=== PATIENT | female | born 1985 | race Caucasian/White ===

== ENCOUNTER 2017-12-30 10:03 | Inpatient (IN) | payer OTHER ==
[2017-12-30] MEDS ORDERED: BRETHINE SUB-Q PRN (10:24)
[2017-12-30] MEDS ORDERED: SUBLIMAZE IV PRN (10:24)
[2017-12-30] MEDS ORDERED: PITOCin/NS 20 UNIT/1000ML DRIP 20 UNITS/1,000 ML BAG IV SCH (11:00)
[2017-12-30] MEDS ORDERED: POLYCILLIN/NS 2 GM/100 ML 2 GM/100 ML BAG IV ONE (11:00)
[2017-12-30] MEDS ORDERED: LACTATED RINGERS 1,000 ML IV SCH ×2 (11:00)
[2017-12-30] MEDS ORDERED: XYLOCAINE 2% INFILTRATI ONE (11:00)
--- NOTE | 2017-12-30 11:02 | History and Physical Report ---
History of Present Illness Date of examination: 12/30/17 Date of admission: 12/30/17 10:47 Chief complaint: Labor History of present illness: 32 year old presents to L&D in active labor. Patient states her contractions began around 1:30 AM today. Patient denies leaking of fluid or vaginal bleeding. Patient received care at [facility] and brings her records with her today. significant for grand multipara, influenza during early ( treated with Tamiflu), and GBS bacteriuria. labs are as follows: O+, antibody screen negative, rubella immune, HIV negative, hepatitis B surface antigen negative, RPR nonreactive, quad screen negative, 2 hour glucose tolerance test WNL, GBS positive, GC/CT negative, pap smear negative. LMP 03/13/17. EDC 12/31/17 (based on 7 week, 4 day US). Past History Past Medical History: no pertinent history Past Surgical History: no surgical history [employer] History: denies: abnormal PAP smear, chlamydia, gonorrhea, hepatitis B, hepatitis C, HIV, syphilis Family/Genetic History: none Social history: , lives with family, full code. denies: smoking, alcohol abuse, prescription drug abuse, IV drug use - Obstetrical History Expected Date of Delivery: 12/31/17 Actual Gestation: 39 Week(s) 6 Day(s) : 8 Para: 5 Hx # Term Pregnancies: 6 Number of Pregnancies: 0 Spontaneous Abortions: 0 Induced : 2 Number of Living Children: 5 Medications and Allergies Allergies Allergy/AdvReac Type Severity Reaction Status Date / Time No Known Allergies Allergy Unverified 12/30/17 10:28 Active Meds: Active Medications Ephedrine Sulfate (Ephedrine Sulfate) 10 mg IV Q2M PRN PRN Reason: Hypotension Fentanyl (Sublimaze) 100 mcg IV Q2H PRN PRN Reason: Labor Pain Ampicillin Sodium (Polycillin/Ns 2 Gm/100 Ml) 2 gm in 100 mls @ 100 mls/hr IV ONCE ONE; Protocol Stop: 12/30/17 11:59 Lactated Ringer's (Lactated Ringers) 1,000 mls @ 125 mls/hr IV DIRECT BERNARD Oxytocin/Sodium Chloride (Pitocin/Ns 20 Unit/1000ml Drip) 20 units in 1,000 mls @ 125 mls/hr IV DIRECT BERNARD Ampicillin Sodium (Ampicillin/Ns 1 Gm/50 Ml) 1 gm in 50 mls @ 100 mls/hr IV Q4H BERNARD; Protocol Lidocaine (Xylocaine 2%) 20 ml INFILTRATI ONCE ONE Stop: 12/30/17 11:01 Terbutaline Sulfate (Brethine) 0.25 mg SUB-Q ONCE PRN PRN Reason: Hyperstimulation/Hypertonicity Review of Systems All systems: negative (contractions) - Vital Signs Vital signs: Vital Signs Pulse BP 60 121/79 12/30/17 10:24 12/30/17 10:24 Temp Pulse Resp BP Pulse Ox 96.8 F L 60 20 121/79 12/30/17 10:28 12/30/17 10:28 12/30/17 10:28 12/30/17 10:28 - Physical Exam Breasts: Positive: deferred Cardiovascular: Regular rate, Normal S1, Normal S2 Lungs: Positive: Clear to auscultation Abdomen: Positive: normal appearance, soft. Negative: distention, tenderness, guarding, rigidity Genitourinary (Female): Positive: normal external genitalia. Negative: perineal /vulvar lesions Vagina: Positive: normal moisture Uterus: Positive: enlarged. Negative: tender Anus/Rectum: Positive: normal perianal skin Extremities: Positive: normal. Negative: tenderness - Obstetrical FHR: category 1 Uterine Contraction Monitor Mode: External Cervical Dilatation: 4.5 Cervical Effacement Percentage: 95 station: -1 Uterine Contraction Frequency (min): every 2-3 minutes Uterine Contraction Pattern: Regular Uterine Contraction Intensity: Moderate Results All other labs normal. Assessment and Plan A: at 39 weeks, 6 days gestation. Active labor. GBS positive. Plan: Admit. GBS prophylaxis. Anticipate vaginal delivery.
[2017-12-30 11:48] LABS: Hematocrit 33.6 % (30.3-42.9); Hemoglobin 11.3 gm/dl (10.1-14.3); Mean Corpuscular HGB Conc 34 % (30-34); Mean Corpuscular Hemoglobin 28 pg (28-32); Mean Corpuscular Volume 84 fl (79-97); Platelet Count 232 K/mm3 (140-440); Red Cell Distribution Width 14.6 % (13.2-15.2)
[2017-12-30] MEDS ORDERED: NORCO 5/325 PO PRN (13:30)
[2017-12-30] MEDS ORDERED: DULCOLAX PR PRN (13:30)
[2017-12-30] MEDS ORDERED: BENADRYL PO PRN (13:30)
[2017-12-30] MEDS ORDERED: TUCKS PAD TP PRN (13:30)
[2017-12-30] MEDS ORDERED: LANSINOH TP PRN (13:30)
[2017-12-30] MEDS ORDERED: MILK OF MAGNESIA PO PRN (13:30)
[2017-12-30] MEDS ORDERED: ZOFRAN IV PRN (13:30)
[2017-12-30] MEDS ORDERED: SODIUM CHLORIDE FLUSH SYRINGE 10 ML IV NR (14:00)
[2017-12-30] MEDS ORDERED: AMPICILLIN/NS 1 GM/50 ML 1 GM/50 ML BAG IV SCH (15:00)
--- NOTE | 2017-12-30 15:29 | Procedure Note ---
OB Delivery Note - Delivery Date of Delivery: 12/30/17 Surgeon: RONNA ZAMBRANO Estimated blood loss: other (250 cc) - Vaginal Delivery presentation: vertex Delivery position: OA Delivery induction: none Delivery monitor: external FHT, external uterine Route of delivery: Delivery placenta: spontaneous Delivery cord: 3 umbilical vessels Episiotomy: none Delivery laceration: 1st degree Delivery repair: vicryl Anesthesia: local Delivery comments: Spontaneous vaginal delivery of liveborn female LUZ MARINA over first degree perineal laceration with apgars of 9/9. Baby placed immediately on maternal chest after delivery. Spontaneous cry and respirations. Baby bulb suctioned. 3 vessel cord double clamped and cut. Spontaneous delivery of intact placenta and membranes. EBL 250 cc. 1st degree perineal laceration repaired with vicryl. Vaginal sweep negative. Sponge count correct. Mother and baby stable.
[2017-12-30] MEDS: MOTRIN PO SCH (22:31)
[2017-12-31 03:30] LABS: Hematocrit 28.6 % (30.3-42.9); Hemoglobin 9.9 gm/dl (10.1-14.3)
[2017-12-31] MEDS: MOTRIN PO SCH ×2 (05:25→10:02)
[2017-12-31] MEDS ORDERED: FEOSOL PO SCH (10:00)
[2017-12-31 12:28] VITALS: BP 113/59
--- NOTE | 2017-12-31 13:52 | Progress Note ---
Assessment and Plan A: day 1. Anemia. P: Discharge patient home today. Discussed with patient discharge instructions and warning signs in detail. Advised pt. to avoid intercourse. Advised pt. to avoid lifting, heavy housework, and driving. Advised pt. to follow up at OB clinic in 6 weeks. The following Rx were called to pt. pharmacy: Motrin 800 mg, #30, 1 po every 8 hours prn, 0 RF; Rx Ferrous Sulfate 325 mg, #60, 1 po BID, 2 RF. Subjective - Subjective Date of service: 12/31/17 Principal diagnosis: day 1 S/P Interval history: day 1 S/P . Doing well and desires discharge today. . Reports moderate amount of lochia. Voiding without difficulty. Tolerating a regular diet without nausea or vomiting. Ambulating well. Patient denies headache, chest pain, cough, shortness of breath, leg pain, symptoms of depression, or any other problems. Patient is undecided what she wants to use for contraception but considering BTL. Patient reports: appetite normal, voiding normally, pain well controlled, flatus , ambulating normally : doing well Objective - Vital Signs Latest vital signs: Vital Signs Temp Pulse Resp BP BP Pulse Ox 12/31/17 12:27 98.4 F 60 18 113/59 12/31/17 08:43 98.3 F 68 18 105/66 12/31/17 01:01 97.6 F 59 L 18 91/44 97 12/30/17 14:55 55 L 18 124/63 124/63 12/30/17 14:40 62 18 115/60 115/60 12/30/17 14:25 68 18 167/74 167/74 12/30/17 14:10 56 L 18 116/67 12/30/17 14:09 56 L 116/67 12/30/17 13:55 55 L 18 122/72 12/30/17 13:54 55 L 122/72 Intake and Output 12/30/17 12/31/17 12/31/17 23:59 07:59 15:59 Output Total 150 600 Balance -150 -600 Output: Urine 150 600 Void 150 600 Other: Total, Output Amount 150 600 # Voids Void 1 2 - Exam Cardiovascular: Present: Regular rate, Normal S1, Normal S2 Lungs: Present: Clear to auscultation Abdomen: Present: normal appearance, soft. Absent: distention, tenderness, guarding, rigidity Extremities: Present: normal. Absent: tenderness, edema - Labs Labs: Abnormal lab results 12/31/17 Range/Units 02:41 Hgb 9.9 L (10.1-14.3) gm/dl Hct 28.6 L (30.3-42.9) %
--- NOTE | 2017-12-31 13:55 | Discharge Summary ---
Providers - Providers Date of Admission: 12/30/17 10:46 Date of discharge: 12/31/17 Attending physician: MEDARDO DOMINGUEZ Primary care physician: MEDARDO DOMINGUEZ Hospitalization Reason for admission: active labor Delivery: Episiotomy: none Laceration: none Other procedures: none complications: none Discharge diagnosis: IUP at term delivered [facility] baby: female Pertinent studies: Labs Hospital course: Normal hospital course. Condition at discharge: Good Disposition: DC-01 TO HOME OR SELFCARE Plan - Provider Discharge Summary Activity: routine, no sex for 6 weeks, no heavy lifting 4 weeks, no strenuous exercise Diet: routine Instructions: routine Additional instructions: Take your vitamin and iron as prescribed. Call your doctor immediately for: * Fever > 100.5 * Heavy vaginal bleeding ( >1 pad per hour) * Severe persistent headache * Shortness of breath * Reddened, hot, painful area to leg or breast - Follow up plan Follow up: MEDARDO DOMINGUEZ [Primary Care Provider] - 6 Weeks
== END 2017-12-31 15:25 | disposition home or self-care (01) | DRG 775 ==
LOC: TRG 10:03 → LD 10:46 → UNDOADMIN 10:47 → LD 10:56 → OB 17:47
PROVIDERS: ADMIT Obstetrics & Gynecology; ATTEND Obstetrics & Gynecology
PROC: 0HQ9XZZ Repair Perineum Skin, External Approach (ICD-10-PCS; principal; 2017-12-30)
PROC: 10E0XZZ Delivery of Products of Conception, External Approach (ICD-10-PCS; 2017-12-30)
DX: O99.824 Streptococcus B carrier state complicating childbirth (principal); O70.0 First degree perineal laceration during delivery; Z3A.39 39 weeks gestation of pregnancy; Z37.0 Single live birth; O99.02 Anemia complicating childbirth; D64.9 Anemia, unspecified
CPT/HCPCS: 36415; 85014; 85018; 85027; 86592; 86850; 86900; 86901; J0290; J2590; J3010; J7120